=== PATIENT | female | born 1985 | race Caucasian/White ===

== ENCOUNTER 2018-12-25 02:53 | Inpatient (IN) | payer SELFPAY ==
[~2018-12-25] VITALS: Ht 167.6 cm; Wt 71.2 kg
[2018-12-25] MEDS ORDERED: SODIUM CHLORIDE 0.9% 1,000 ML IV ONE ×2 (03:35→10:00)
[2018-12-25] MEDS ORDERED: KETOROLAC 30MG/ML VIAL IV STA (03:35)
[2018-12-25] MEDS ORDERED: ONDANSETRON HCL 4MG/2ML INJ IV STA (03:35)
[2018-12-25 03:58] LABS: HEMOGLOBIN. 15.3 g/dL (12.0-16.0); MEAN CORPUSCULAR VOLUME 88.4 fL (81.0-99.0); MEAN PLATELET VOLUME 7.4 fl (7.4-10.4); PLATELET 341 x1000/uL (130-400); RED BLOOD CELL COUNT 5.09 mill/uL (4.2-5.4); RED CELL DISTRIBUTION WIDTH 13.5 % (11.6-14.6)
[2018-12-25 04:03] LABS: CHLORIDE 98 mEq/L (98-107)
[2018-12-25 04:04] LABS: PROTHROMBIN TIME 10.4 sec (9.6-11.0)
[2018-12-25 04:05] LABS: HCG SCREEN NEGATIVE
[2018-12-25 04:08] LABS: ETHANOL BLOOD < 10 mg/dL
[2018-12-25 04:53] LABS: PLATELET ESTIMATE NORMAL
[2018-12-25] MEDS ORDERED: IOHEXOL-300 100 ML BOTTLE ONE (06:16)
[2018-12-25 08:47] LABS: CLARITY URINE CLEAR (CLEAR); KETONES URINE NEGATIVE (NEGATIVE); LEUKOCYTE ESTERASE URINE NEGATIVE (NEGATIVE); NITRITE URINE NEGATIVE (NEGATIVE); OCCULT BLOOD URINE NEGATIVE (NEGATIVE); PH URINE 5.5 (4.5-8.0); PROTEIN URINE 1+ (NEGATIVE)
[2018-12-25 08:49] LABS: COLOR URINE DARK YELLOW (YELLOW)
[2018-12-25 08:58] LABS: SPECIFIC GRAVITY URINE >1.099 (1.005-1.030)
[2018-12-25 09:21] LABS: *BARBITURATES SCREEN URINE NEGATIVE (NEGATIVE); *BENZODIAZEPINES SCREEN URINE NEGATIVE (NEGATIVE); *COCAINE SCREEN URINE NEGATIVE (NEGATIVE)
[2018-12-25 09:22] LABS: CANNABINOID URINE SCREEN NEGATIVE (NEGATIVE); METHADONE URINE SCREEN NEGATIVE (NEGATIVE); OPIATES URINE SCREEN NEGATIVE (NEGATIVE); PHENCYCLIDINE URINE SCREEN NEGATIVE (NEGATIVE)
[2018-12-25 09:31] LABS: *AMPHETAMINES SCREEN URINE PRESUMTIVE POSITIVE (NEGATIVE)
[2018-12-25] MEDS ORDERED: ACETAMINOPHEN 325MG TABLET PO ONE (09:45)
[2018-12-25] MEDS ORDERED: SODIUM CHLORIDE 0.9% 1000ML BAG (SEPSIS BOLUS) IV ONE (10:00)
[2018-12-25] MEDS ORDERED: IBUPROFEN 800MG TABLET PO ONE (10:15)
[2018-12-25] MEDS ORDERED: CEFTRIAXONE 1 G PREMIX 50 ML IV ONE (10:15)
[2018-12-25 10:21] LABS: CREATINE KINASE 27 IU/L (26-192); CREATINE KINASE MB FRACTION < 1.0 ng/mL (0.5-3.6)
[2018-12-25] MEDS ORDERED: AZITHROMYCIN 500 MG TABLET PO SCH (12:00)
[2018-12-25] MEDS ORDERED: MAGNESIUM/ALUMINUM HYDROXIDE/SIMETHICONE 30ML UDC PO PRN (14:15)
[2018-12-25] MEDS ORDERED: DOCUSATE SODIUM 100MG CAPSULE PO PRN (14:15)
[2018-12-25] MEDS ORDERED: HYDROCODONE/ACETAMINOPHEN 5/325MG TABLET PO PRN (14:15)
[2018-12-25] MEDS ORDERED: ONDANSETRON HCL 4MG/2ML INJ IV PRN (14:15)
[2018-12-25] MEDS ORDERED: CLONIDINE 0.1MG TABLET PO PRN (14:15)
[2018-12-25] MEDS ORDERED: LEVOFLOXACIN 500MG PREMIX 100 ML IV SCH (15:15)
[2018-12-25] MEDS: DEXT 5%/0.45% NACL 1000ML 1,000 ML IV SCH (16:31)
[2018-12-25 20:00] VITALS: BP 106/55
[2018-12-25 20:45] VITALS: BP 106/55
[2018-12-26] VITALS: BP 102/56
[2018-12-26 04:00] VITALS: BP 96/64
[2018-12-26 06:35] LABS: HEMATOCRIT. 38.5 % (36.0-48.0); HEMOGLOBIN. 12.9 g/dL (12.0-16.0); MEAN CORPUSCULAR VOLUME 89.6 fL (81.0-99.0); MEAN PLATELET VOLUME 7.7 fl (7.4-10.4); PLATELET 323 x1000/uL (130-400); RED CELL DISTRIBUTION WIDTH 14.1 % (11.6-14.6)
[2018-12-26 06:52] LABS: CHLORIDE 102 mEq/L (98-107)
[2018-12-26 08:00] VITALS: BP 109/61
[2018-12-26] MEDS: DEXT 5%/0.45% NACL 1000ML 1,000 ML IV SCH (08:24)
[2018-12-26 11:28] LABS: PLATELET ESTIMATE NORMAL
[2018-12-26 12:00] VITALS: BP 110/74
[2018-12-26] MEDS ORDERED: LEVOFLOXACIN 500MG PREMIX 100 ML IV SCH (14:15)
[2018-12-26] MEDS ORDERED: POTASSIUM CHLORIDE 20MEQ/PACKET PO NR (15:30)
[2018-12-26] MEDS: LEVOFLOXACIN 500MG PREMIX 100 ML IV SCH (15:46)
[2018-12-26 16:00] VITALS: BP 99/58
[2018-12-26 20:00] VITALS: BP 95/50
[2018-12-26] MEDS: ACETAMINOPHEN 325MG TABLET PO PRN (20:48)
[2018-12-27] VITALS: BP 94/52
[2018-12-27] MEDS: DEXT 5%/0.45% NACL 1000ML 1,000 ML IV SCH ×2 (00:29→16:28)
[2018-12-27 04:00] VITALS: BP 102/64
[2018-12-27] MEDS: ACETAMINOPHEN 325MG TABLET PO PRN ×2 (05:00→17:03)
[2018-12-27 08:00] VITALS: BP 105/51
[2018-12-27 10:22] LABS: HEMATOCRIT. 35.8 % (36.0-48.0); HEMOGLOBIN. 11.9 g/dL (12.0-16.0); MEAN CORPUSCULAR HEMOGLOBIN 29.7 pg (28.0-32.0); MEAN CORPUSCULAR VOLUME 89.7 fL (81.0-99.0); MEAN PLATELET VOLUME 7.8 fl (7.4-10.4); PLATELET 382 x1000/uL (130-400); RED BLOOD CELL COUNT 3.99 mill/uL (4.2-5.4); RED CELL DISTRIBUTION WIDTH 13.9 % (11.6-14.6)
[2018-12-27 10:28] LABS: CHLORIDE 103 mEq/L (98-107)
[2018-12-27 11:38] LABS: PLATELET ESTIMATE NORMAL
[2018-12-27 12:00] VITALS: BP 105/61
[2018-12-27 16:00] VITALS: BP 95/52
[2018-12-27] MEDS: LEVOFLOXACIN 500MG PREMIX 100 ML IV SCH (16:21)
[2018-12-27 20:30] VITALS: BP 100/59
[2018-12-28] VITALS: BP 102/67
[2018-12-28 04:00] VITALS: BP 109/74
[2018-12-28] MEDS: ACETAMINOPHEN 325MG TABLET PO PRN (04:20)
[2018-12-28 06:03] LABS: CHLORIDE 103 mEq/L (98-107)
[2018-12-28 06:21] LABS: HEMATOCRIT. 37.6 % (36.0-48.0); HEMOGLOBIN. 12.3 g/dL (12.0-16.0); MEAN CORPUSCULAR HEMOGLOBIN 29.5 pg (28.0-32.0); MEAN CORPUSCULAR VOLUME 89.8 fL (81.0-99.0); PLATELET 412 x1000/uL (130-400); RED BLOOD CELL COUNT 4.19 mill/uL (4.2-5.4); RED CELL DISTRIBUTION WIDTH 14.3 % (11.6-14.6)
[2018-12-28 08:00] VITALS: BP 102/61
[2018-12-28] MEDS: DEXT 5%/0.45% NACL 1000ML 1,000 ML IV SCH (10:03)
[2018-12-28 12:00] VITALS: BP 101/61
[2018-12-28] MEDS: LEVOFLOXACIN 500MG PREMIX 100 ML IV SCH (15:25)
[2018-12-28 16:00] VITALS: BP 108/69
[2018-12-28 16:22] LABS: PLATELET ESTIMATE INCREASED
[2018-12-28] MEDS: PIPERACILLIN/TAZOBACTAM 3.375 G in DEXT 5% WATER 100 ML IV SCH ×2 (18:07→23:56)
[2018-12-28 20:00] VITALS: BP 106/60
[2018-12-29] MEDS: DEXT 5%/0.45% NACL 1000ML 1,000 ML IV SCH ×2 (02:30→20:09)
[2018-12-29 04:12] LABS: CHLAMYDIA TRACHOMATIS NAA Positive (Negative); NEISSERIA GONORRHOEAE NAA Negative (Negative)
[2018-12-29] MEDS: PIPERACILLIN/TAZOBACTAM 3.375 G in DEXT 5% WATER 100 ML IV SCH ×3 (05:18→18:28)
[2018-12-29 08:00] VITALS: BP 107/73
[2018-12-29 09:09] LABS: CHLORIDE 105 mEq/L (98-107)
[2018-12-29 09:15] LABS: HEMOGLOBIN. 11.9 g/dL (12.0-16.0); MEAN CORPUSCULAR HEMOGLOBIN 29.5 pg (28.0-32.0); MEAN PLATELET VOLUME 7.8 fl (7.4-10.4); PLATELET 439 x1000/uL (130-400); RED BLOOD CELL COUNT 4.04 mill/uL (4.2-5.4); RED CELL DISTRIBUTION WIDTH 14.6 % (11.6-14.6)
[2018-12-29] MEDS ORDERED: AZITHROMYCIN 500 MG TABLET PO NR ×2 (10:30→14:15)
[2018-12-29 12:00] VITALS: BP 112/57
[2018-12-29 13:36] LABS: PLATELET ESTIMATE INCREASED
[2018-12-29 16:00] VITALS: BP 112/78
[2018-12-29 20:00] VITALS: BP 116/75
[2018-12-30] VITALS: BP 116/68
[2018-12-30] MEDS: PIPERACILLIN/TAZOBACTAM 3.375 G in DEXT 5% WATER 100 ML IV SCH ×5 (01:12→23:39)
[2018-12-30 04:00] VITALS: BP 116/74
[2018-12-30 07:22] LABS: HEMATOCRIT. 37.3 % (36.0-48.0); HEMOGLOBIN. 12.5 g/dL (12.0-16.0); MEAN CORPUSCULAR HEMOGLOBIN 29.8 pg (28.0-32.0); MEAN CORPUSCULAR VOLUME 88.8 fL (81.0-99.0); MEAN PLATELET VOLUME 7.6 fl (7.4-10.4); PLATELET 524 x1000/uL (130-400)
[2018-12-30 08:00] VITALS: BP 108/68
[2018-12-30 12:00] VITALS: BP 114/71
[2018-12-30] MEDS: DEXT 5%/0.45% NACL 1000ML 1,000 ML IV SCH (12:26)
[2018-12-30 13:11] LABS: HIV SCREEN 4G Non Reactive (Non Reactive)
[2018-12-30 16:00] VITALS: BP 121/80
[2018-12-30 20:00] VITALS: BP 107/61
[2018-12-31] VITALS: BP 120/65
[2018-12-31 04:00] VITALS: BP 112/67
[2018-12-31] MEDS: DEXT 5%/0.45% NACL 1000ML 1,000 ML IV SCH ×2 (04:30→11:25)
[2018-12-31] MEDS: PIPERACILLIN/TAZOBACTAM 3.375 G in DEXT 5% WATER 100 ML IV SCH ×4 (05:06→23:11)
[2018-12-31 06:54] LABS: ATYPICAL LYMPHOCYTES 1; PLATELET ESTIMATE INCREASED
[2018-12-31 08:00] VITALS: BP 112/70
[2018-12-31 12:00] VITALS: BP 110/69
[2018-12-31 16:00] VITALS: BP 106/53
[2018-12-31] MEDS: ACETAMINOPHEN 325MG TABLET PO PRN (16:18)
[2018-12-31 20:00] VITALS: BP 123/79
[2019-01-01] VITALS: BP 99/55
[2019-01-01 04:00] VITALS: BP 117/66
[2019-01-01] MEDS: PIPERACILLIN/TAZOBACTAM 3.375 G in DEXT 5% WATER 100 ML IV SCH (05:04)
[2019-01-01] MEDS: DEXT 5%/0.45% NACL 1000ML 1,000 ML IV SCH (05:12)
[2019-01-01 08:00] VITALS: BP 126/72
[2019-01-01] MEDS: ACETAMINOPHEN 325MG TABLET PO PRN (08:20)
[2019-01-01 12:00] VITALS: BP 108/62
[2019-01-01 12:22] VITALS: BP 108/62
== END 2019-01-01 13:43 | disposition home or self-care (01) | DRG 532 ==
LOC: ER 03:38 → 7WST 14:02 → SUPCPDRO 14:14 → EDBEDREQ 18:35 → EDBEDREQSVC 18:35 → ENRESERV 19:49 → 7WST 12-26 00:39 → 8WST 12-27 20:25
PROVIDERS: ADMIT Hospitalist; ATTEND Hospitalist
DX: D25.9 Leiomyoma of uterus, unspecified (principal); N70.11 Chronic salpingitis; D72.829 Elevated white blood cell count, unspecified; F15.10 Other stimulant abuse, uncomplicated; F19.10 Other psychoactive substance abuse, uncomplicated; Z59.0 Homelessness; Z97.5 Presence of (intrauterine) contraceptive device
CPT/HCPCS: 36415; 71045; 74177; 76830; 76856; 80305; 80320; 81003; 82550; 82553; 83605; 84443; 84703; 85651; 86140; 87210; 87389; 87491; 87591; 93005; 93306; 93970; 99285; C1893; J0696; J1885; J1956; J2405; J2543; J7030; J7060; Q9967; G0480